=== PATIENT | male | born 1955 | race Caucasian/White ===

== ENCOUNTER 2019-08-29 09:51 | Emergency (ER) | payer MEDICARE ==
[~2019-08-29] VITALS: Ht 167.6 cm; Wt 69.9 kg
[2019-08-29] MEDS ORDERED: HYDROCODONE/APAP 5/325MG 1 EACH TABLET ONE (10:18)
--- NOTE | 2019-08-29 10:23 | NUR ---
MRI APPROVED, [facility] (NICHOLAS)NOTIFIED VIA TEXT
--- NOTE | 2019-08-29 10:23 | NUR ---
CAME FROM HOME WITHC/O LOWER BACK PAIN R/T BLE AND NO BLADDER CONTROL x 4 DAYS , ATTACHED TO MONITOR , BED ON LOW AND LOCKED POSITION , SIDE RAILS X2 , DR BARRAGAN AT BEDSIDE FOR ASSESSMENT . WILL CONTINUE TO MONITOR
--- NOTE | 2019-08-29 10:23 | NUR ---
TEXTED DR. WEI FOR MRI APPROVAL.
[2019-08-29] MEDS ORDERED: HYDROCODONE/APAP 5/325MG 1 EACH TABLET PO ONE (10:30)
--- NOTE | 2019-08-29 10:40 | NUR ---
INTERVIEWED PT FOR MRI CHECKLIST , PT AGREED AND SIGNED .
--- NOTE | 2019-08-29 10:55 | NUR ---
NOTIFIED DR BARRAGAN REGARDING BP OF 196/126 , NO COMPLAINS NOTED MD JOY
--- NOTE | 2019-08-29 11:04 | NUR ---
NO RESPONSE FROM [facility]ER YET.
--- NOTE | 2019-08-29 11:54 | NUR ---
CALLED HIM, HE IS ON WAY.
--- NOTE | 2019-08-29 11:55 | NUR ---
CALLED HIM , HE IS ON HIS WAY NOW.
--- NOTE | 2019-08-29 14:18 | NUR ---
PT STABLE , WHEELED PT TO MRI DEPARTMENT , CHECKLIST DONE ,.
--- NOTE | 2019-08-29 14:48 | NUR ---
PT STABLE S/P MRI PROCEDURE , NO ACUTE EVENTS NOTED , WILL CONTINUE TO MONITOR
--- NOTE | 2019-08-29 15:44 | NUR ---
PAGED DR DODGE, ON THE PHONE WITH
--- NOTE | 2019-08-29 16:16 | NUR ---
COVID19 SWAB DONE AND SENT TO LAB
[2019-08-29] MEDS ORDERED: CLONIDINE HCL 0.1 MG TABLET ONE (16:31)
[2019-08-29] MEDS ORDERED: AMLODIPINE BESYLATE 5 MG TABLET ONE (16:33)
--- NOTE | 2019-08-29 16:39 | NUR ---
PT STABLE UPON DC , BP ELEVATED PRN MEDS GIVEN , PT ASSITED TO [address] FOR DC , PT WENT AMA , PROVIDED WITH PRESCRIPTIONS AND IMAGING COPIES ,
[2019-08-29 16:42] VITALS: BP 165/65
[2019-08-29] MEDS ORDERED: AMLODIPINE BESYLATE 5 MG TABLET PO ONE (17:00)
== END 2019-08-29 16:43 | disposition left against medical advice (07) ==
LOC: ER 09:58
DX: M51.17 Intervertebral disc disorders with radiculopathy, lumbosacral region (principal); M51.16 Intervertebral disc disorders with radiculopathy, lumbar region; G83.4 Cauda equina syndrome; R20.2 Paresthesia of skin; M48.07 Spinal stenosis, lumbosacral region; M48.061 Spinal stenosis, lumbar region without neurogenic claudication; I10 Essential (primary) hypertension
CPT/HCPCS: 72148-TC